=== PATIENT | male | born 1985 | race Caucasian/White ===

== ENCOUNTER 2017-08-01 16:55 | Observation (INO) | payer BC ==
[2017-08-01] MEDS ORDERED: NORMAL SALINE 1,000 ML IV ONE (17:32)
[2017-08-01] MEDS ORDERED: ONDANSETRON HCL/PF 2 MG/ML VIAL IV ONE (17:32)
[2017-08-01] MEDS ORDERED: KETOROLAC TROMETHAMINE 30 MG/ML VIAL IV ONE (17:32)
--- NOTE | 2017-08-01 17:34 | ERNOTE ---
Abdominal HPI - Narrative Date of Service: 08/01/17 - General Chief Complaint: Abdominal Pain Time Seen by Provider: 08/01/17 17:17 Source: patient, RN notes reviewed Exam Limitations: clinical condition - Immun/Allergies/Home Medications Immunizatons: IMMUNIZATION HX Immunizations Up to Date Yes History of Influenza Vaccine No Hx Pneumococcal Vaccination No Allergies/Adverse Reactions: Allergies No Known Allergies Allergy (Verified 08/01/17 17:01) Home Medications: HOME MEDICATIONS ALPRAZolam [Xanax] 0.5 mg PO BID 05/14/17 [Last Taken 05/14/17] Sertraline HCl [Zoloft] 25 mg PO DAILY 05/14/17 [Last Taken 05/14/17] - History of Present Illness Narrative: Blake is a 31 year old male who presents to the ED for abdominal pain and vomiting that began 2 hours ago. He is unsure of when his last bowel movement was and believes he may be constipated. He has not taken anything for pain. He last ate at about 1430 but he then vomited. Date (Duration): 08/01/17 Time (Timing): 15:00 Timing: constant Prior Abdominal Problems: Present: none Prior Treatment: Absent: recently seen Review of Systems - Review of Systems Constitutional: Absent: recent illness, fever, chills EYE: Present: no symptoms reported ENT: Absent: nose congestion, sore throat Respiratory: Absent: shortness of breath, cough Cardiology: Absent: chest pain, palpitations Gastrointestinal/Abdominal: Present: nausea, vomiting, abdominal pain. Absent: diarrhea Genitourinary: Absent: dysuria, hematuria Musculoskeletal: Absent: back pain, neck pain, joint pain Skin: Absent: rash, lesions, lumps Neurological: Present: headache, dizziness/light-headedness Endocrine: Present: no symptoms reported Hematologic/Lymphatic: Absent: easy bruising, easy bleeding Psych: Present: no symptoms reported - Patient's Past Medical History Patient History - Medical: No pertinent hx Patient History - Cardiac/Respiratory: No pertinent hx Patient History - Cancer: No Hx of Cancer Patient History - Surgical Procedures: No surgical history - Social History Living Situations: spouse Abuse History: No History of abuse Smoking Status: Current every day smoker Cigarettes Packs Per Day: 1 Have you smoked in the past 12 months: Yes Do you dip or chew tobacco: No Alcohol Use: occasionally Drug Use: none - Immunizations Immunizations Up to Date: Yes Hx Pneumococcal Vaccination: No History of Influenza Vaccine: No Physical Exam - Physical Exam General Appearance: Present: wd/wn, alert, mild distress, anxious Head Exam: Present: normal inspection Neck: Present: normal inspection, nontender, supple Respiratory: Present: no respiratory distress, normal breath sounds, no accessory muscle use, lungs clear Cardiovascular/Chest: Present: regular rate, rhythm, no murmur, normal peripheral pulses Gastrointestinal/Abdominal: Present: normal bowel sounds, nondistended, soft, tenderness - Severe - RLQ, guarding - RLQ Back Exam: Present: normal inspection, no CVA tenderness Extremity Exam: Present: normal inspection, normal range of motion, no edema Neurological Exam: Present: alert, oriented, normal mood/affect Skin Exam: Present: warm/dry, pallor ED Progress - Results and Orders Patient's Lab Results:: I have reviewed the patient's lab results. - Vital Signs Patient's Vital Signs:: I have reviewed the patient's vital signs. Vital Signs: Vital Signs 08/01/17 16:58 Temperature 36 C L Pulse Rate 77 Respiratory 20 Rate Blood Pressure 123/64 O2 Sat by Pulse 97 Oximetry - X-Ray X-Ray #1 X-Ray: abdomen Interpretation: Reviewed by me X-ray Comments: Nonobstructive bowel gas pattern with moderate fecal retention - CT/Ultrasound CT/Ultrasound Narrative: CT abdomen/pelvis shows acute appendicitis per Brenden preliminary report - Progress/Reassessment Chief Complaint: Abdominal Pain Progress:: Improved Plan - Plan Plan: Dr. Anguiano contacted with CT results. The patient will be admitted to observation status and he plans to see him in the morning. He can have clear liquids until midnight. He will be started on Levaquin and Flagyl IV. Discussed with hospitalist. Departure Clinical Impression: Acute appendicitis Qualifiers: Acute appendicitis type: unspecified acute appendicitis type Qualified Code(s) : K35.80 - Unspecified acute appendicitis - Departure Disposition: [facility] Condition: Stable Referrals: Michael Bhatt MD [Primary Care Provider] -
[2017-08-01] MEDS ORDERED: ONDANSETRON HCL/PF 2 MG/ML VIAL ONE (18:07)
[2017-08-01] MEDS ORDERED: KETOROLAC TROMETHAMINE 30 MG/ML VIAL ONE (18:07)
[2017-08-01 18:13] LABS: Hematocrit 45.7 % (42.0-52.0); Hemoglobin 16.1 gm/dL (13.5-18.0); Mean Cell Volume 83.9 fl (78-100); Mean Corpuscular Hemoglobin 29.5 pg (27-31); Mean Corpuscular Hgb Conc 35.2 g/dl (32-36); Mean Platelet Volume 9.6 fl (6.0-9.5); Neutrophil # 16.9 K/mm3 (1.3-6.0); Platelet Count 248 K/mm3 (150-450); Red Blood Count 5.45 M/mm3 (4.7-6.0); Red Cell Distribution Width 12.8 % (11.5-14.0); White Blood Count 19.4 K/mm3 (4.0-10.5)
[2017-08-01 18:18] LABS: Urine Bilirubin Negative (NEGATIVE); Urine Blood Negative /ul (NEGATIVE); Urine Ketone Negative (NEGATIVE); Urine Nitrite Negative (NEGATIVE); Urine Protein Negative (NEGATIVE); Urine Specific Gravity >=1.030 SP.GR. (1.005-1.030); Urine Urobilinogen Normal (NORMAL); Urine pH 5.5 pH (5.0-7.0)
[2017-08-01 18:26] LABS: Albumin * 4.4 gm/dl (3.4-5.0); Anion Gap 10.8 mmol/L (6.8-13.8); BUN/Creatinine Ratio 13.8 (9.0-21.6); Bilirubin, Total 0.3 mg/dL (0.0-1.1); Ca. Corrected For Albumin 8.3 mg/dL (8.4-10.2); Calcium * 8.9 mg/dL (7.9-10.9); Carbon Dioxide 30.8 mmol/L (24-32.6); Potassium 3.6 mmol/L (3.4-4.6); Total Protein 8.2 gm/dL (6.2-8.2)
[2017-08-01 18:35] LABS: Urine Appearance Clear; Urine Bacteria TRACE; Urine Color Yellow; Urine RBC None Seen /hpf (0-5); Urine WBC None Seen /hpf (0-5)
[2017-08-01] MEDS ORDERED: DIATRIZOATE MEGLUMINE, SODIUM 30 ML BTL ONE (18:42)
[2017-08-01] MEDS ORDERED: DIATRIZOATE MEGLUMINE, SODIUM 30 ML BTL PO ONE (18:44)
[2017-08-01] MEDS ORDERED: MORPHINE SULFATE 4 MG/ML SYRG IV ONE (19:19)
[2017-08-01] MEDS ORDERED: MORPHINE SULFATE 4 MG/ML SYRG ONE (19:19)
[2017-08-01] MEDS ORDERED: HYDROmorphone HCL 2 MG/ML VIAL ONE (20:34)
[2017-08-01] MEDS ORDERED: HYDROmorphone HCL 2 MG/ML VIAL IV ONE (20:35)
[2017-08-01] MEDS ORDERED: LEVOFLOXACIN IN DEXTROSE 5 % 750 MG/150 ML BAG IV ONE (21:27)
[2017-08-01] MEDS ORDERED: ONDANSETRON HCL/PF 2 MG/ML VIAL IV PRN (21:42)
[2017-08-01] MEDS ORDERED: NICOTINE 21 MG PATC TD SCH (22:00)
[2017-08-01] MEDS: MORPHINE SULFATE 2 MG/ML DISP.SYRIN IV PRN (22:35)
--- NOTE | 2017-08-01 23:02 | HP ---
Chief Complaint - Chief Complaint Date of Service: 08/01/17 Time of Service: 23:01 Chief Complaint: RLQ abdominal pain History of Present Illness: 31 years old male adm to the hospital with reports of localized right lower quadrant pain, nausea, vomiting and constipation. PMH significant for anxiety, panic attack and insomnia. pt stated approximately 4pm today he began having sudden onset of RLQ pain accompanied with nausea and one episode of vomiting.pt stated he usually have bowel movement daily but haven't had Bowel movement today. He was concerned for constipation so he went to work anyway. While at work the pain continues to intensified, so he came to the ER. While in ER CT ABD:Dilated appendix measuring 1.0cm in diameter with minimal periappendiceal inflammation suggestive of acute appendicitis. He was initiated on IV antbx Levaquin, Flagyl and IVF. Dr. Barron consulted and plan to see pt in the morning. Plan of care discussed with pt he verbalized understanding and agrees. - Patient's Past Medical History Patient History - Medical: Anxiety, Other - insomnia , PTSD, panic attack Patient History - Cardiac/Respiratory: No pertinent hx Patient History - Cancer: No Hx of Cancer Patient History - Surgical Procedures: Other - lypoma removal Patient History - Other: None - Family History Father Family History - Medical: Other - appendicitis - Social History Living Situations: spouse Abuse History: No History of abuse Psych History: Hx of Anxiety Does anyone smoke in the home?: Yes Smoking Status: Current every day smoker Cigarettes Packs Per Day: 1 Have you smoked in the past 12 months: Yes Do you dip or chew tobacco: No Patient requests Smoking Cessation Consult: No Initiate information on Smoking Cessation: Yes Alcohol Use: occasionally - 6pk weekly Drug Use: none - Immunizations Immunizations Up to Date: Yes Hx Pneumococcal Vaccination: No History of Influenza Vaccine: No Review Of Systems (GEN) - Review of Systems Generalized/Overall Review: Present: No Symptoms Reported EENTM: Present: No Symptoms Reported Respiratory: Present: No Symptoms Reported Abdominal: Present: Nausea, Vomiting, Abdominal Pain, Constipation Genitourinary: Present: No Symptoms Reported Musculoskeletal: Present: No Symptoms Reported Neurological: Present: No Symptoms Reported Skin: Present: No Symptoms Reported Endocrine: Present: No Symptoms Reported Immunizations: IMMUNIZATION HX Immunizations Up to Date Yes History of Influenza Vaccine No Hx Pneumococcal Vaccination No Allergies/Adverse Reactions: Allergies Allergy/AdvReac Type Severity Reaction Status Date / Time No Known Allergies Allergy Verified 08/01/17 17:01 Home Medications: HOME MEDICATIONS ALPRAZolam [Xanax] 0.5 mg PO BID 05/14/17 [Last Taken 07/31/17 22:00] Sertraline HCl [Zoloft] 25 mg PO DAILY 05/14/17 [Last Taken 07/31/17 22:00] Exam - Exam Vital Signs: Vital Signs - Last Taken Temp 36.6 C 08/01/17 21:20 Pulse 76 08/01/17 21:20 Resp 18 08/01/17 21:20 BP 120/77 08/01/17 21:20 Pulse Ox 98 08/01/17 21:20 Constitutional: Present: Alert, Oriented x3, Cooperative, Well developed, Well nourished, No distress, Obese ENT Exam: Present: normal ENT inspection Eye Exam: bilateral eye: normal inspection Neck: Present: full range of motion Back Exam: Present: normal inspection Breasts: Present: Exam deferred Respiratory: Present: chest non-tender, lungs clear, normal breath sounds, no respiratory distress Cardiovascular/Chest: Present: normal peripheral pulses, regular rate, rhythm, no chest tenderness Peripheral Pulses: dorsalis-pedis (R): 3+, dorsalis-pedis (L): 3+ Abdomen: Present: Normal bowel sounds, soft, nondistended, tender, guarding /Rectal: Present: Exam deferred Extremity: Present: normal range of motion, non-tender, normal inspection, no pedal edema Skin Exam: Present: normal color, warm/dry Neurologic: Present: oriented x 3 Appearance: Present: appropriate appearance Eye contact: Present: cooperative, good eye contact Thoughts: Present: normal thought pattern, no apparent hallucination Diagnostic Studies: Laboratory Results WBC 19.4 K/mm3 (4.0-10.5) H 08/01/17 18:10 RBC 5.45 M/mm3 (4.7-6.0) 08/01/17 18:10 Hgb 16.1 gm/dL (13.5-18.0) 08/01/17 18:10 Hct 45.7 % (42.0-52.0) 08/01/17 18:10 MCV 83.9 fl (78-100) 08/01/17 18:10 MCH 29.5 pg (27-31) 08/01/17 18:10 MCHC 35.2 g/dl (32-36) 08/01/17 18:10 RDW 12.8 % (11.5-14.0) 08/01/17 18:10 Plt Count 248 K/mm3 (150-450) 08/01/17 18:10 MPV 9.6 fl (6.0-9.5) H 08/01/17 18:10 Immature Gran % (Auto) 0.40 % (0.001-0.429) 08/01/17 18:10 Immature Gran # (Auto) 0.07 K/mm3 (0.000-0.0310) H 08/01/17 18:10 Neutrophils % 87.0 % (42-75.0) H 08/01/17 18:10 Lymphocytes % 6.2 % (20-51) L 08/01/17 18:10 Monocytes % 5.7 % (0.0-9) 08/01/17 18:10 Eosinophils % 0.3 % (0.0-3.0) 08/01/17 18:10 Basophils % 0.4 % (0.0-1.0) 08/01/17 18:10 Nucleated RBC % 0.0 k/mm3 (0-1) 08/01/17 18:10 Neutrophils # 16.9 K/mm3 (1.3-6.0) H 08/01/17 18:10 Lymphocytes # 1.2 k/mm3 (1.5-3.5) L 08/01/17 18:10 Monocytes # 1.1 k/mm3 (0.0-1.0) H 08/01/17 18:10 Eosinophils # 0.1 k/mm3 (0.0-0.7) 08/01/17 18:10 Absolute Basophils 0.1 k/mm3 (0.0-0.1) 08/01/17 18:10 Sodium 140 mmol/L (132-142) 08/01/17 18:12 Plasma Sodium 140 mmol/L (130-142) 08/01/17 18:12 Potassium 3.6 mmol/L (3.4-4.6) 08/01/17 18:12 Chloride 102 mmol/L (97-106) 08/01/17 18:12 Carbon Dioxide 30.8 mmol/L (24-32.6) 08/01/17 18:12 Anion Gap 10.8 mmol/L (6.8-13.8) 08/01/17 18:12 BUN 17 mg/dL (6-23) 08/01/17 18:12 Creatinine 1.23 mg/dL (0.4-1.4) 08/01/17 18:12 Est GFR (Non-Af Amer) 73 mL/min (60-130) 08/01/17 18:12 BUN/Creatinine Ratio 13.8 (9.0-21.6) 08/01/17 18:12 Random Glucose 87 mg/dL (70-110) 08/01/17 18:12 Calcium 8.9 mg/dL (7.9-10.9) 08/01/17 18:12 Calcium Adj for Albumin 8.3 mg/dL (8.4-10.2) L 08/01/17 18:12 Total Bilirubin 0.3 mg/dL (0.0-1.1) 08/01/17 18:12 AST 21 U/L (0-48) 08/01/17 18:12 ALT 33 U/L (19-67) 08/01/17 18:12 Alkaline Phosphatase 85 U/L (50-170) 08/01/17 18:12 Total Protein 8.2 gm/dL (6.2-8.2) 08/01/17 18:12 Albumin 4.4 gm/dl (3.4-5.0) 08/01/17 18:12 Lipase 106 U/L (73-393) 08/01/17 18:10 Urine Color Yellow 08/01/17 18:05 Urine Appearance Clear 08/01/17 18:05 Urine pH 5.5 pH (5.0-7.0) 08/01/17 18:05 Ur Specific [place] >=1.030 SP.GR. (1.005-1.030) 08/01/17 18:05 Urine Protein Negative mg/dL (NEGATIVE) 08/01/17 18:05 Urine Glucose (UA) Negative mg/dL (NEGATIVE) 08/01/17 18:05 Urine Ketones Negative mg/dL (NEGATIVE) 08/01/17 18:05 Urine Blood Negative /ul (NEGATIVE) 08/01/17 18:05 Urine Nitrate Negative (NEGATIVE) 08/01/17 18:05 Urine Bilirubin Negative mg/dl (NEGATIVE) 08/01/17 18:05 Urine Urobilinogen Normal EU/dl (NORMAL) 08/01/17 18:05 Ur Leukocyte Esterase Negative /ul (NEGATIVE) 08/01/17 18:05 Urine RBC None seen /hpf (0-5) 08/01/17 18:05 Urine WBC None seen /hpf (0-5) 08/01/17 18:05 Ur Epithelial Cells None seen /hpf (0-5) 08/01/17 18:05 Urine Bacteria Trace (NONE) 08/01/17 18:05 Urine Culture Comments No culture indicated 08/01/17 18:05 CT ABD:Dilated appendix measuring 1.0cm in diameter with minimal periappendiceal inflammation suggestive of acute appendicitis. Assessment/Plan - Narrative Narrative: Acute Appendicitis CT ABD:Dilated appendix measuring 1.0cm in diameter with minimal periappendiceal inflammation suggestive of acute appendicitis. IVF bolus and continue with maintenance fluid while NPO Zofran for nausea and vomiting Morphine for pain control Levaquin and Flagyl was started in the ER, will continue. On adm WBC >19 with left shift, will Monitor CBC in AM. lipase WNL Pre-op CXR, Ptt,PT Constipation Will probable have bowel movement following gastrografin Substance abuse Continue with Xanax Nicotine patch Chronic conditions -stable and resume home medications Panic attack insomnia PTSD Code status: Full GI ppx:protonix VTE ppx:ambulate and SCD Time 35 minutes and case discussed with Dr. Lock - Assessment/Plan (1) Acute appendicitis Problem: Acute Qualifiers: Acute appendicitis type: unspecified acute appendicitis type Qualified Code (s): K35.80 - Unspecified acute appendicitis (2) Insomnia disorder Problem: Chronic (3) Panic attack Problem: Chronic (4) PTSD (post-traumatic stress disorder) Problem: Chronic (5) Constipation Problem: Acute Qualifiers: Constipation type: slow transit constipation Qualified Code(s): K59.01 - Slow transit constipation
[2017-08-01] MEDS ORDERED: POTASSIUM CHLORIDE 10 MEQ in NORMAL SALINE 1,000 ML IV SCH (23:15)
[2017-08-01] MEDS ORDERED: PANTOPRAZOLE SODIUM 40 MG in NORMAL SALINE 100 ML IV SCH (23:15)
[2017-08-01] MEDS: metroNIDAZOLE/SODIUM CHLORIDE 500 MG/100 ML BAG IV SCH (23:28)
[2017-08-02] MEDS ORDERED: POTASSIUM CHLORIDE 20 MEQ in NORMAL SALINE 1,000 ML IV SCH (00:15)
[2017-08-02] MEDS ORDERED: SERTRALINE HCL 50 MG TABLET PO SCH (00:30)
[2017-08-02] MEDS: MORPHINE SULFATE 2 MG/ML DISP.SYRIN IV PRN ×2 (02:48→09:24)
--- NOTE | 2017-08-02 05:48 | PN ---
Subjective - Date and Time Seen Date: 08/02/17 Time: 05:42 Subjective Narrative: patient seen today in bed with reports of cramping pain to the RLQ, pt stated I feel like I want to pass gas but unable too. He denies fever, chills, palpitation or cough overnight. Discussed size of appendix that should be less than 6mm and current per CT his appendix 1.0cm inflamed Objective - Review of Systems Generalized/Overall Review: Reports: No Symptoms Reported EENTM: Reports: No Symptoms Reported Respiratory: Reports: No Symptoms Reported Cardiac: Reports: No Symptoms Reported Abdominal: Reports: Abdominal Pain Genitourinary Symptoms: Reports: No Symptoms Reported Musculoskeletal Complaints: Reports: No Symptoms Reported Neurological: Reports: No Symptoms Reported Skin: Reports: No Symptoms Reported Endocrine: Reports: No Symptoms Reported - Vitals Vitals: Last Vital Signs Temp 36.6 C 08/02/17 00:40 Pulse 64 08/02/17 00:40 Resp 16 08/02/17 00:40 BP 106/70 08/02/17 00:40 Pulse Ox 100 08/02/17 00:40 - Exam Constitutional: Present: Alert, Oriented x3, Cooperative, Well developed, Well nourished, No distress ENT Exam: Present: normal ENT inspection Neck: Present: full range of motion Respiratory: Present: chest non-tender, normal breath sounds, no respiratory distress, decreased breath sounds Cardiovascular/Chest: Present: normal peripheral pulses, regular rate, rhythm, no chest tenderness, no edema Abdomen: Present: Normal bowel sounds, nondistended, no rebound tenderness, tender, guarding Extremity: Present: normal range of motion, non-tender, normal inspection, no pedal edema Skin Exam: Present: normal color, warm/dry, no cyanosis Neurologic: Present: oriented x 3 Appearance: Present: appropriate appearance Eye contact: Present: cooperative, good eye contact Thoughts: Present: normal thought pattern Assessment/Plan Plan Narrative: Acute Appendicitis CT ABD:Dilated appendix measuring 1.0cm in diameter with minimal periappendiceal inflammation suggestive of acute appendicitis. IVF bolus was given in ER, will continue with IVF while NPO Antiemetic for nausea and vomiting Morphine for pain control Levaquin and Flagyl was started in the ER, will continue. On adm WBC >19---->14.3 trending down after antbx use Pre-op CXR, Ptt,PT- pending results Constipation Will probable have bowel movement following gastrografin Substance abuse Continue with Xanax Nicotine patch Chronic conditions -stable and resume home medications Panic attack insomnia PTSD Code status: Full GI ppx:protonix VTE ppx:ambulate and SCD Time 15 minutes - Problems/Diagnosis (1) Acute appendicitis Problem: Acute Qualifiers: Acute appendicitis type: unspecified acute appendicitis type Qualified Code (s): K35.80 - Unspecified acute appendicitis (2) Insomnia disorder Problem: Chronic (3) Panic attack Problem: Chronic (4) PTSD (post-traumatic stress disorder) Problem: Chronic (5) Constipation Problem: Acute Qualifiers: Constipation type: slow transit constipation Qualified Code(s): K59.01 - Slow transit constipation
[2017-08-02 06:06] LABS: Hematocrit 41.5 % (42.0-52.0); Hemoglobin 14.3 gm/dL (13.5-18.0); Mean Cell Volume 84.3 fl (78-100); Mean Corpuscular Hemoglobin 29.1 pg (27-31); Mean Corpuscular Hgb Conc 34.5 g/dl (32-36); Mean Platelet Volume 9.9 fl (6.0-9.5); Neutrophil # 11.6 K/mm3 (1.3-6.0); Neutrophil % 81.4 % (42-75.0); Platelet Count 188 K/mm3 (150-450); Red Blood Count 4.92 M/mm3 (4.7-6.0); Red Cell Distribution Width 12.7 % (11.5-14.0); White Blood Count 14.3 K/mm3 (4.0-10.5)
[2017-08-02 06:18] LABS: Prothrombin Time (Patient) 11.6 Seconds (9.0-11.0)
[2017-08-02] MEDS: metroNIDAZOLE/SODIUM CHLORIDE 500 MG/100 ML BAG IV SCH (06:27)
[2017-08-02 06:31] LABS: INR 1.16 INR (0.90-1.10); Partial Thrombolplastin Time 26.6 Seconds (24-32)
--- NOTE | 2017-08-02 08:45 | CONS ---
[facility] - General Date of Service: 08/02/17 Narrative: Pt went to work at [employer] yesterday at 3pm and began to have generalized periumbilical pain and by 5pm had to leave work. His father picked him up and brought him to the emergency. His pain began to migrate to the RLQ. His was found to have a WBC of 19K and a CT of the abdomen showed a thickened appendix with periappendiceal inflammation. He was admitted with anticipation of a Laparoscopic Appendectomy this morning. He is having ongoing pain in the RLQ. His has received levaquin and flagyl. His WBC is 14K this morning. Source: patient, RN/MD, old records Exam Limitations: no limitations - History of Present Illness Allergies/Adverse Reactions: Allergies No Known Allergies Allergy (Verified 08/01/17 17:01) Home Medications: Home Medications Medication Instructions Recorded Last Taken ALPRAZolam [Xanax] 0.5 mg PO BID 05/14/17 07/31/17 22:00 Sertraline HCl [Zoloft] 25 mg PO DAILY 05/14/17 07/31/17 22:00 - Patient's Past Medical History Patient History - Medical: Anxiety, Other - insomnia , PTSD, panic attack Patient History - Cardiac/Respiratory: No pertinent hx Patient History - Cancer: No Hx of Cancer Patient History - Surgical Procedures: Other - lypoma removal Patient History - Other: None - Family History Father Family History - Medical: Other - appendicitis - Social History Living Situations: spouse Abuse History: No History of abuse Psych History: Hx of Anxiety Does anyone smoke in the home?: Yes Smoking Status: Current every day smoker Cigarettes Packs Per Day: 1 Have you smoked in the past 12 months: Yes Do you dip or chew tobacco: No Patient requests Smoking Cessation Consult: No Initiate information on Smoking Cessation: Yes Alcohol Use: occasionally - 6pk weekly Drug Use: none - Immunizations Immunizations Up to Date: Yes Hx Pneumococcal Vaccination: No History of Influenza Vaccine: No Procedures APPLICATION OF SPLINT (04/17/04) OTHER SKIN & SUBQ I D (10/22/12) Medications - Medications Current Medications: Current Medications Alprazolam (Xanax) 0.5 mg PO BID CHIP Stop: 09/01/17 09:01 Last Admin: 08/02/17 08:01 Dose: 0.5 mg Metronidazole (Flagyl) 500 mg in 100 mls @ 100 mls/hr IV Q8H CHIP PRN Reason: Protocol Stop: 08/31/17 21:31 Last Admin: 08/02/17 06:27 Dose: 100 mls/hr Pantoprazole Sodium 40 mg/ (Sodium Chloride) 100 mls @ 400 mls/hr IV Q24H CHIP Stop: 08/31/17 23:16 Last Infusion: 08/02/17 02:49 Dose: Infused Potassium Chloride 20 meq/ (Sodium Chloride) 1,010 mls @ 70 mls/hr IV .[id number] CHIP Stop: 09/01/17 00:16 Last Admin: 08/02/17 00:35 Dose: 70 mls/hr Morphine Sulfate (Morphine Sulfate) 2 mg IV Q4H PRN PRN Reason: Pain Stop: 08/31/17 21:43 Last Admin: 08/02/17 02:48 Dose: 2 mg Nicotine (Nicoderm) 21 mg TD Q24H CHIP Stop: 08/31/17 22:01 Last Admin: 08/01/17 22:32 Dose: Not Given Sertraline HCl (Zoloft) 25 mg PO HS CHIP Stop: 09/01/17 00:31 Last Admin: 08/02/17 00:53 Dose: 25 mg Physical Examination - Exam Vital Signs: Vital Signs - Last Taken Temp 36.8 C 08/02/17 06:10 Pulse 65 08/02/17 06:10 Resp 14 08/02/17 06:10 BP 109/63 08/02/17 06:10 Pulse Ox 99 08/02/17 06:10 O2 Oxygen Delivery Method Room Air Constitutional: Present: Alert, Oriented x3, Cooperative, Well developed, Well nourished, No distress ENT Exam: Present: normal ENT inspection Eye Exam: bilateral eye: normal inspection Neck: Present: normal inspection, trachea midline Respiratory: Present: no respiratory distress, no accessory muscle use Abdomen: Present: tender - RLQ, guarding - RLQ Extremity: Present: normal inspection Skin Exam: Present: other - Scar on R flank from lipoma excision at [facility] - Results and Findings: Lab/Microbiology results last 24 hrs: Abnormal/Pending Laboratory Last 24 HRS 08/02/17 08/02/17 05:20 05:20 WBC 14.3 H D Hct 41.5 L MPV 9.9 H Immature Gran # (Auto) 0.04 H Neutrophils % 81.4 H Lymphocytes % 11.2 L Neutrophils # 11.6 H PT 11.6 H INR (Anticoag Therapy) 1.16 H - Assessments/Findings (1) Acute appendicitis Diagnosis(s): Plan laparoscopic appendectomy. The options, risks, and benefits were reviewed fully. He seems to understand, asks appropriate questions, and desires to proceed. Problem: Acute Qualifiers: Acute appendicitis type: with localized peritonitis Qualified Code(s): K35.3 - Acute appendicitis with localized peritonitis
[2017-08-02] MEDS ORDERED: ALPRAZolam 0.5 MG TABLET PO SCH (09:00)
[2017-08-02] MEDS ORDERED: RINGER'S SOLUTION,LACTATED 1,000 ML IV ONE ×2 (09:45→10:40)
[2017-08-02] MEDS ORDERED: BUPIVACAINE HCL/EPINEPHRINE 50 ML VIAL IJ ONE ×2 (10:11)
[2017-08-02] MEDS ORDERED: oxyCODONE HCL/ACETAMINOPHEN 1 TAB TABLET PO PRN (10:58)
[2017-08-02] MEDS ORDERED: RINGER'S SOLUTION,LACTATED 1,000 ML IV PRN (10:58)
[2017-08-02] MEDS ORDERED: MORPHINE SULFATE 2 MG/ML DISP.SYRIN IV PRN (10:58)
--- NOTE | 2017-08-02 10:58 | OR ---
Operative Report - Dictated Report Narrative: Date: 08/02/2017 Preoperative diagnosis: Acute appendicitis with localized peritonitis Postoperative diagnosis: Same, nonperforated Procedure: Laparoscopic appendectomy Staff surgeon: Serafin CASTELLON M.D. Compliance Mgr surgeon: Chantal Covington Anesthesia: Gen. endotracheal, local EBL: Less than 5 mL Specimen: Appendix Description of procedure: The patient was placed in the supine position and following the smooth induction of general endotracheal anesthesia a Aguilar catheter was inserted and SCD boots were applied. The abdomen was then prepped and draped in a sterile fashion. All port sites were anesthetized with Marcaine prior to incision. A 5 mm infraumbilical incision was carried out and blunt dissection was taken down to the anterior abdominal wall. A perforating towel clip was placed through the umbilical day for countertraction. The abdomen was entered under direct vision with a 5 mm blunt port with the scope within the lumen of the trocar. The abdomen was then insufflated to a pressure of 15 mmHg with carbon dioxide. Under direct vision a 12 mm suprapubic port and left lower quadrant 5 mm port were inserted. The patient was placed in Trendelenburg position and rolled to the patient's left to provide good vision to the right lower quadrant the appendix was inflamed there is no purulence there was no free fluid. The terminal ileum and ileocecal fold of Treves were adherent to the appendix. These were taken down with blunt dissection. The appendix was also adherent to the iliac fossa and these adhesions were also taken down with blunt dissection. The mesoappendix was taken down in continuity with a thunderbeat. The appendix was then transected at its base with an Endo ROSALINE. The appendix was placed in an Endopouch and retrieved through the suprapubic port. Inspection was carried out. Hemostasis appeared to be adequate. The pneumoperitoneum was released and the ports were removed. The incisions were closed with subcuticular stitches of 4-0 Vicryl and sealed with Dermabond. The patient tolerated the procedure well without any apparent complications and was discharged from the operating room in stable condition.
--- NOTE | 2017-08-02 11:06 | DS ---
(1) Acute appendicitis Problem: Acute Qualifiers: Acute appendicitis type: with localized peritonitis Qualified Code(s): K35.3 - Acute appendicitis with localized peritonitis Description of Stay: Pt presented to ER with RLQ pain and WBC 19K and CT c/w early acute appendicitis. He was admitted, hydrated, given IV ABX, and underwent laparoscopic appendectomy. He tolerated the procedure well. The appendix was not perforated and no pus or free fluid was seen in the abdomen therefore the antibiotics her received preop should be sufficient. He is discharged with instructions not to lift greater than 20 lb for 2 weeks. Diet as tolerated. Follow-up in 7 days. Gruver/Motrin for pain management. Procedures Performed: see notes below List Procedures: Laparoscopic appendectomy Discharge Disposition: Home self care Disposition: Home self-care Condition: Good Discharge Activity: No Lifting - > 20 lb x 2 weeks Referrals: Michael Bhatt MD [Primary Care Provider] - Complete Home Medications List: Complete Home Medication List: ALPRAZolam [Xanax] 0.5 mg PO BID 05/14/17 Sertraline HCl [Zoloft] 25 mg PO DAILY 05/14/17
[2017-08-02] MEDS ORDERED: metroNIDAZOLE/SODIUM CHLORIDE 500 MG/100 ML BAG IV SCH (13:30)
[2017-08-02 14:45] VITALS: BP 111/76
[2017-08-02] MEDS ORDERED: LEVOFLOXACIN IN DEXTROSE 5 % 750 MG/150 ML BAG IV SCH (23:00)
== END 2017-08-02 15:26 | disposition home or self-care (01) ==
LOC: ER 16:55 → MS 21:37
PROVIDERS: ADMIT Specialist; ATTEND Specialist
PROC: 0DTJ4ZZ Resection of Appendix, Percutaneous Endoscopic Approach (ICD-10-PCS; principal; 2017-08-02)
DX: K35.3 Acute appendicitis with localized peritonitis (principal); G47.00 Insomnia, unspecified; F41.0 Panic disorder [episodic paroxysmal anxiety]; F43.12 Post-traumatic stress disorder, chronic; K59.00 Constipation, unspecified; Z68.33 Body mass index [BMI] 33.0-33.9, adult; F17.210 Nicotine dependence, cigarettes, uncomplicated
CPT/HCPCS: 36415; 44970; 71046; 74019; 74177; 80053; 81001; 83690; 85025; 85610; 85730; 88304; 96365; 96366; 96367; 96375; 96376; 99284; G0378; J2405